=== PATIENT | female | born 1955 | race Caucasian/White ===

== ENCOUNTER 2024-01-26 21:22 | Emergency (ER) | payer OTHER ==
[~2024-01-26] VITALS: Ht 172.7 cm; Wt 95.3 kg
[2024-01-26 21:33] VITALS: BP_SYST 154; PULSE 90; RESP 20; TEMP 97.7; O2SAT 97
[2024-01-26 23:40] VITALS: BP_SYST 146; PULSE 87; RESP 20; TEMP 97.8; O2SAT 97
== END 2024-01-27 | disposition home or self-care (01) ==
LOC: SED 21:22
DX: S60.222A Contusion of left hand, initial encounter (principal); S90.02XA Contusion of left ankle, initial encounter; S09.90XA Unspecified injury of head, initial encounter; Z79.899 Other long term (current) drug therapy; W01.0XXA Fall on same level from slipping, tripping and stumbling without subsequent striking against object, initial encounter; Y93.89 Activity, other specified; Y92.89 Other specified places as the place of occurrence of the external cause; Y99.8 Other external cause status
CPT/HCPCS: 70450-TC; 99284